=== PATIENT | male | born 1930 ===

== ENCOUNTER 2017-04-12 10:03 | Emergency (ER) | payer OTHER ==
[~2017-04-12] VITALS: Ht 167.6 cm; Wt 78.0 kg
[2017-04-12] MEDS ORDERED: ADULT ASPIRIN81 MG (10:16)
== END 2017-04-12 13:30 | disposition home or self-care (01) ==
LOC: ER 10:03
DX: R60.0 Localized edema (principal)

== ENCOUNTER 2017-04-19 09:35 | Emergency (ER) | payer OTHER ==
[~2017-04-19] VITALS: Ht 162.6 cm; Wt 73.5 kg
[~2017-04-19 09:35] MED LIST: ADULT ASPIRIN81 MG
== END 2017-04-19 12:52 | disposition home or self-care (01) ==
LOC: ER 09:35
DX: R60.0 Localized edema (principal)